=== PATIENT | female | born 1940 | race Caucasian/White ===

== ENCOUNTER 2024-03-14 21:02 | Inpatient (IN) | payer MEDICAID ==
[~2024-03-14] VITALS: Ht 165.1 cm; Wt 54.6 kg
[2024-03-14] MEDS: SODIUM CHLORIDE 0.9% 1,000 ML IV ONE ×2 (21:29→23:02)
[2024-03-14 21:33] VITALS: O2SAT 95
[2024-03-14 21:40] LABS: HEMATOCRIT. 45.5 % (36.0-48.0); HEMOGLOBIN. 14.9 g/dL (12.0-16.0); MEAN CORPUSCULAR HEMOGLOBIN 29.9 pg (28.0-32.0); MEAN CORPUSCULAR HGB CONC 32.7 g/dL (31.0-37.0); MEAN CORPUSCULAR VOLUME 91.4 fL (81.0-99.0); MEAN PLATELET VOLUME 9.8 fl (7.4-10.4); PLATELET 317 x1000/uL (130-400); RED BLOOD CELL COUNT 4.98 mill/uL (4.2-5.4); RED CELL DISTRIBUTION WIDTH 16.5 % (11.6-14.6); WHITE BLOOD COUNT 20.6 x1000/uL (4.5-11.0)
[2024-03-14 21:44] LABS: DIFFERENTIAL COMMENT 1
[2024-03-14] MEDS ORDERED: CEFEPIME 2GM IN DEXT 5% 100ML IV ONE (21:45)
[2024-03-14] MEDS: PANTOPRAZOLE SODIUM 40 MG/VIAL IV STA (21:47)
[2024-03-14] MEDS: MORPHINE SULFATE 2 MG/ML INJ (NOT FOR IM USE) IV ONE (21:49)
[2024-03-14] MEDS: ONDANSETRON HCL 4MG/2ML INJ IV STA (21:49)
[2024-03-14 21:57] LABS: D-DIMER 10.45 mg/L FEU (<0.50); INR 1.1; PROTHROMBIN TIME 12.6 sec (9.6-11.0)
[2024-03-14 21:59] LABS: CARBON DIOXIDE 21 mEq/L (21-32); CHLORIDE 103 mEq/L (98-107); POTASSIUM 5.9 mEq/L (3.5-5.1); SODIUM 140 mEq/L (136-145)
[2024-03-14 22:00] LABS: CALCIUM 10.4 mg/dL (8.7-10.4)
[2024-03-14] MEDS ORDERED: PIPERACILLIN/TAZO 3.375G/50ML 50 ML IV SCH (22:00)
[2024-03-14 22:04] LABS: CREATININE 1.6 mg/dL (0.6-1.0); GLUCOSE 381 mg/dL (70-105)
[2024-03-14 22:05] LABS: UREA NITROGEN BLOOD 63 mg/dL (9-23)
[2024-03-14 22:06] LABS: ALANINE AMINOTRANSFERASE 52 IU/L (10-49); ALBUMIN 4.2 g/dL (3.2-4.8); ASPARTATE AMINOTRANSFERASE 70 IU/L (<34)
[2024-03-14 22:07] LABS: BETA HYDROXYBUTYRATE 0.4 mMol/L (0.0-0.3); BILIRUBIN DIRECT 0.3 mg/dL (<=3.0); BILIRUBIN TOTAL 0.8 mg/dL (0.1-1.0); PHOSPHORUS 2.5 mg/dL (2.5-4.9); PROTEIN TOTAL 7.7 g/dL (6.0-8.3)
[2024-03-14 22:08] LABS: PLATELET ESTIMATE NORMAL
[2024-03-14] MEDS: VANCOMYCIN 1G PREMIX 200 ML IV SCH (22:09)
[2024-03-14 22:11] LABS: LACTIC ACID 5.7 mmol/L (0.4-2.0)
[2024-03-14 22:18] LABS: TROPONIN I HIGH SENSITIVITY 59 ng/L (3.0-34)
[2024-03-14 23:15] VITALS: O2SAT 99
[2024-03-15] VITALS (14 sets, daily range): BP systolic 109–133; BP diastolic 82–93; PULSE 100–117; RESP 13–25; TEMP 36.61404–37.39188; O2SAT 90–100
[2024-03-15] MEDS: CEFEPIME 2GM/100ML 100 ML IV SCH (00:13)
[2024-03-15] MEDS: MORPHINE SULFATE 2 MG/ML INJ (NOT FOR IM USE) IV ONE (02:37)
[2024-03-15] MEDS ORDERED: DOCUSATE SODIUM 100MG CAPSULE PO PRN (09:30)
[2024-03-15] MEDS ORDERED: ACETAMINOPHEN 650MG/20.3ML UDC GT PRN (09:30)
[2024-03-15] MEDS ORDERED: MAGNESIUM/ALUMINUM HYDROXIDE/SIMETHICONE 30ML UDC PO PRN (09:30)
[2024-03-15] MEDS ORDERED: NITROGLYCERIN 0.4MG TABLET SL SL PRN (09:30)
[2024-03-15] MEDS ORDERED: ZOLPIDEM TARTRATE 5MG TABLET PO PRN (09:30)
[2024-03-15] MEDS ORDERED: IPRATROPIUM/ALBUTEROL 0.5-3(2.5)MG/3ML NEB NEB PRN (09:30)
[2024-03-15 10:56] LABS: HEMATOCRIT 37.8 % (36.0-48.0); HEMOGLOBIN 12.4 g/dL (12.0-16.0); MEAN CORPUSCULAR HEMOGLOBIN 29.8 pg (28.0-32.0); MEAN CORPUSCULAR HGB CONC 32.7 g/dL (31.0-37.0); MEAN CORPUSCULAR VOLUME 91.2 fL (81.0-99.0); PLATELET 220 x1000/uL (130-400); RED BLOOD CELL COUNT 4.14 mill/uL (4.2-5.4); RED CELL DISTRIBUTION WIDTH 16.6 % (11.6-14.6); WHITE BLOOD COUNT 15.6 x1000/uL (4.5-11.0)
[2024-03-15] MEDS: SODIUM ZIRCONIUM CYCLOSILICATE 10GM/PACKET PO NR (10:56)
[2024-03-15 11:13] LABS: ALANINE AMINOTRANSFERASE 31 IU/L (10-49); ALBUMIN 3.5 g/dL (3.2-4.8); ASPARTATE AMINOTRANSFERASE 20 IU/L (<34); BILIRUBIN DIRECT 0.2 mg/dL (<=3.0); BILIRUBIN TOTAL 0.5 mg/dL (0.1-1.0); PROTEIN TOTAL 6.3 g/dL (6.0-8.3)
[2024-03-15] MEDS: PANTOPRAZOLE SODIUM 40 MG/VIAL IV SCH (11:32)
[2024-03-15 11:37] LABS: CALCIUM 9.8 mg/dL (8.7-10.4); CARBON DIOXIDE 19 mEq/L (21-32); CHLORIDE 111 mEq/L (98-107); SODIUM 141 mEq/L (136-145)
[2024-03-15 11:42] LABS: CREATININE 1.3 mg/dL (0.6-1.0); GLUCOSE 220 mg/dL (70-105); IRON 12 ug/dL (50-170)
[2024-03-15 11:43] LABS: LDL CHOLESTEROL 16 mg/dL (5-100); TRIGLYCERIDE 117 mg/dL (0-150); UREA NITROGEN BLOOD 68 mg/dL (9-23)
[2024-03-15 11:44] LABS: CHOLESTEROL 84 mg/dL (<200)
[2024-03-15 11:45] LABS: HDL CHOLESTEROL 39 mg/dL (>65); TOTAL IRON BINDING CAPACITY 470 ug/dl (250-425)
[2024-03-15] MEDS ORDERED: METF-414 GT (11:46)
[2024-03-15 11:47] LABS: T4 FREE 1.19 ng/dL (0.89-1.76); THYROID STIMULATING HORMONE 0.28 uIU/mL (0.55-4.78)
[2024-03-15] MEDS ORDERED: METO-385 GT (11:47)
[2024-03-15 11:59] LABS: VITAMIN B12 SERUM 570 pg/mL (211-911)
[2024-03-15 12:00] LABS: FOLIC ACID (FOLATE) SERUM 11.09 ng/mL (>5.38)
[2024-03-15 12:13] LABS: BG BASE EXCESS -7.1 mmol/L (-2.0-3.0); BG CARBOXYHEMOGLOBIN 0.5 % (0.5-1.5); BG FRACTION INSPIRED OXYGEN 80; BG METHEMOGLOBIN 0.3 % (0.5-1.5); BG OXYHEMOGLOBIN 98.2 % (94.0-98.0); BG PCO2 26.4 mmHg (32.0-45.0); BG PH 7.401 (7.350-7.450); BG PO2 128.4 mmHg (83.0-108.0); BG SAMPLE SITE RIGHT RADIAL; BG TOTAL HEMOGLOBIN 13.1 g/dL (12.0-16.0); BG VENT MODE HIGH FLOW
[2024-03-15] MEDS: DEXT 5%/0.45% NACL 1000ML 1,000 ML IV SCH (12:32)
[2024-03-15] MEDS: MEROPENEM 1G/100ML 100 ML IV SCH (12:32)
[2024-03-15] MEDS: NITROGLYCERIN OINT 1GM/INCH UDPKT TD SCH (14:17)
[2024-03-15 15:43] LABS: CLARITY URINE CLOUDY (CLEAR); COLOR URINE YELLOW (YELLOW); GLUCOSE URINE NEGATIVE (NEGATIVE); KETONES URINE NEGATIVE (NEGATIVE); LEUKOCYTE ESTERASE URINE 1+ (NEGATIVE); NITRITE URINE NEGATIVE (NEGATIVE); OCCULT BLOOD URINE NEGATIVE (NEGATIVE); PROTEIN URINE 1+ (NEGATIVE); SPECIFIC GRAVITY URINE 1.023 (1.005-1.030); UROBILINOGEN URINE 0.2 E.U./dL (0.2-1.0)
[2024-03-15 16:09] LABS: BACTERIA URINE 4+; RBC URINE 0-2 /hpf (0-2); SQUAMOUS EPITHELIAL CELL URINE 1+ /lpf (RARE/1+)
[2024-03-15 16:10] LABS: WBC URINE 15-25 /hpf (0-2)
[2024-03-15] MEDS ORDERED: DEXTROSE 50% WATER 50ML SYRINGE IV PRN (16:15)
[2024-03-15] MEDS ORDERED: INSULIN LISPRO 100 UNITS/ML SUBCUT SCH (16:15)
[2024-03-15 16:19] LABS: *AMPHETAMINES SCREEN URINE NEGATIVE (NEGATIVE)
[2024-03-15 16:20] LABS: *BARBITURATES SCREEN URINE NEGATIVE (NEGATIVE); *BENZODIAZEPINES SCREEN URINE NEGATIVE (NEGATIVE); *COCAINE SCREEN URINE NEGATIVE (NEGATIVE); CANNABINOID URINE SCREEN NEGATIVE (NEGATIVE); ECSTASY MDMA SCREEN URINE NEGATIVE (NEGATIVE); METHADONE URINE SCREEN NEGATIVE (NEGATIVE); OPIATES URINE SCREEN PRESUMPTIVE POSITIVE (NEGATIVE); PHENCYCLIDINE URINE SCREEN NEGATIVE (NEGATIVE)
[2024-03-15] MEDS: ACETAMINOPHEN 650MG/20.3ML UDC GT PRN (16:23)
[2024-03-15] MEDS: FERROUS SULFATE 300MG/5ML UDC PEG SCH (16:24)
[2024-03-15] MEDS: BLOOD SUGAR DIAGNOSTIC STRIP TEST SCH (17:47)
[2024-03-15] MEDS: INSULIN LISPRO 100 UNITS/ML SUBCUT SCH (18:10)
[2024-03-15] MEDS ORDERED: VANCOMYCIN 750MG/150ML (BAXTER) IV SCH (21:00)
[2024-03-16] VITALS (14 sets, daily range): BP systolic 99–147; BP diastolic 79–96; PULSE 80–155; RESP 14–28; TEMP 36.114–36.83628; O2SAT 90–100
[2024-03-16] MEDS ORDERED: ADENOSINE 3 MG/ML 2ML VIAL IV NR (03:15)
[2024-03-16] MEDS: METOPROLOL TARTRATE 5MG/5ML VIAL IV NR (04:25)
[2024-03-16] MEDS: SODIUM CHLORIDE 0.9% 500 ML IV NR (04:25)
[2024-03-16 06:19] LABS: CHLORIDE 111 mEq/L (98-107); POTASSIUM 3.3 mEq/L (3.5-5.1); SODIUM 144 mEq/L (136-145)
[2024-03-16 06:22] LABS: CALCIUM 9.8 mg/dL (8.7-10.4); CARBON DIOXIDE 19 mEq/L (21-32)
[2024-03-16 06:23] LABS: TROPONIN I HIGH SENSITIVITY 32 ng/L (3.0-34)
[2024-03-16 06:27] LABS: GLUCOSE 163 mg/dL (70-105); UREA NITROGEN BLOOD 67 mg/dL (9-23)
[2024-03-16 06:28] LABS: ALANINE AMINOTRANSFERASE 21 IU/L (10-49)
[2024-03-16 06:29] LABS: ALBUMIN 3.3 g/dL (3.2-4.8); ASPARTATE AMINOTRANSFERASE 14 IU/L (<34); BILIRUBIN TOTAL 0.7 mg/dL (0.1-1.0); CREATINE KINASE 34 IU/L (34-145); PHOSPHORUS 2.7 mg/dL (2.5-4.9); PROTEIN TOTAL 5.8 g/dL (6.0-8.3)
[2024-03-16 06:38] LABS: BASOPHILS % 0.2 % (0.0-2.0); EOSINOPHILS % 0.2 % (0.0-5.0); HEMATOCRIT. 36.8 % (36.0-48.0); HEMOGLOBIN. 11.8 g/dL (12.0-16.0); MEAN CORPUSCULAR HEMOGLOBIN 29.7 pg (28.0-32.0); MEAN CORPUSCULAR HGB CONC 32.1 g/dL (31.0-37.0); MEAN CORPUSCULAR VOLUME 92.6 fL (81.0-99.0); MEAN PLATELET VOLUME 10.5 fl (7.4-10.4); MONOCYTES % 5.2 % (2.0-8.0); NEUTROPHILS % 84.4 % (40.0-76.0); PLATELET 221 x1000/uL (130-400); RED BLOOD CELL COUNT 3.98 mill/uL (4.2-5.4); RED CELL DISTRIBUTION WIDTH 17.3 % (11.6-14.6); WHITE BLOOD COUNT 12.2 x1000/uL (4.5-11.0)
[2024-03-16] MEDS: CLONIDINE 0.1MG TABLET PO PRN (08:11)
[2024-03-16] MEDS: VANCOMYCIN 1GM/200ML PMX (BAXTER) IV SCH (12:30)
[2024-03-16] MEDS: POTASSIUM CHLORIDE 20MEQ/PACKET GT NR (12:30)
[2024-03-16] MEDS ORDERED: IOHEXOL-300 100 ML BOTTLE ONE (12:43)
[2024-03-16] MEDS ORDERED: VANCOMYCIN 1.25GM PMX (XELLIA) 250 ML IV SCH (21:00)
[2024-03-17] VITALS (10 sets, daily range): BP systolic 148–172; BP diastolic 87–158; PULSE 87–92; RESP 15–21; TEMP 36.3918–37.00296; O2SAT 93–100
[2024-03-17 06:30] LABS: CHLORIDE 112 mEq/L (98-107); POTASSIUM 3.3 mEq/L (3.5-5.1); SODIUM 143 mEq/L (136-145)
[2024-03-17 06:31] LABS: CARBON DIOXIDE 22 mEq/L (21-32)
[2024-03-17 06:32] LABS: CALCIUM 9.3 mg/dL (8.7-10.4)
[2024-03-17 06:36] LABS: CREATININE 0.7 mg/dL (0.6-1.0)
[2024-03-17 06:37] LABS: GLUCOSE 203 mg/dL (70-105); UREA NITROGEN BLOOD 33 mg/dL (9-23)
[2024-03-17 07:50] LABS: HEMATOCRIT 36.1 % (36.0-48.0); HEMOGLOBIN 11.4 g/dL (12.0-16.0); MEAN CORPUSCULAR HEMOGLOBIN 29.5 pg (28.0-32.0); MEAN CORPUSCULAR HGB CONC 31.7 g/dL (31.0-37.0); MEAN CORPUSCULAR VOLUME 93.1 fL (81.0-99.0); PLATELET 185 x1000/uL (130-400); RED BLOOD CELL COUNT 3.87 mill/uL (4.2-5.4); RED CELL DISTRIBUTION WIDTH 16.9 % (11.6-14.6); WHITE BLOOD COUNT 7.4 x1000/uL (4.5-11.0)
[2024-03-17] MEDS: KCL 20MEQ/100ML PREMIX 100 ML IV SCH (08:44)
[2024-03-17 10:42] LABS: ALANINE AMINOTRANSFERASE 15 IU/L (10-49); ALBUMIN 3.1 g/dL (3.2-4.8); ASPARTATE AMINOTRANSFERASE 14 IU/L (<34); BILIRUBIN DIRECT 0.3 mg/dL (<=3.0); BILIRUBIN TOTAL 0.6 mg/dL (0.1-1.0); PROTEIN TOTAL 5.7 g/dL (6.0-8.3)
[2024-03-17] MEDS: KCL 20MEQ/100ML PREMIX 100 ML IV NR (13:41)
[2024-03-18] VITALS: BP 194/98; PULSE 96; RESP 24; TEMP 36.89184; O2SAT 95
[2024-03-18 04:00] VITALS: BP 164/101; PULSE 104; RESP 26; TEMP 36.50292; O2SAT 91
[2024-03-18 08:00] VITALS: BP 159/98; PULSE 103; RESP 26; TEMP 36.28068; O2SAT 91
[2024-03-18] MEDS: GUAIFENESIN 200MG/10ML SUGAR FREE UDC PO PRN (08:42)
[2024-03-18] MEDS: FAMOTIDINE 20MG/2ML VIAL IV SCH (08:43)
[2024-03-18 10:00] VITALS: BP 172/106; PULSE 90; RESP 18; O2SAT 94
[2024-03-18 12:00] VITALS: BP 170/105; PULSE 96; RESP 23; TEMP 36.28068; O2SAT 93
[2024-03-18] MEDS: ONDANSETRON HCL 4MG/2ML INJ IV PRN (12:50)
[2024-03-18 15:58] VITALS: BP 142/115; PULSE 96; TEMP 97.3; O2SAT 90
== END 2024-03-18 17:27 | disposition hospice, home (50) | DRG 720 ==
LOC: ER 21:02 → 5EST 03-15 01:55
PROVIDERS: ADMIT Internal Medicine; ATTEND Internal Medicine
PROC: 5A0935A Assistance with Respiratory Ventilation, Less than 24 Consecutive Hours, High Flow/Velocity Cannula (ICD-10-PCS; principal; 2024-03-14)
PROC: 5A0935A Assistance with Respiratory Ventilation, Less than 24 Consecutive Hours, High Flow/Velocity Cannula (ICD-10-PCS; 2024-03-16)
DX: A41.9 Sepsis, unspecified organism (principal); J96.00 Acute respiratory failure, unspecified whether with hypoxia or hypercapnia; I21.4 Non-ST elevation (NSTEMI) myocardial infarction; G92.8 Other toxic encephalopathy; E87.20 Acidosis, unspecified; N17.9 Acute kidney failure, unspecified; D50.9 Iron deficiency anemia, unspecified; E11.65 Type 2 diabetes mellitus with hyperglycemia; Z66 Do not resuscitate; E87.5 Hyperkalemia; F03.90 Unspecified dementia, unspecified severity, without behavioral disturbance, psychotic disturbance, mood disturbance, and anxiety; I10 Essential (primary) hypertension; Z51.5 Encounter for palliative care; I25.10 Atherosclerotic heart disease of native coronary artery without angina pectoris; K52.9 Noninfective gastroenteritis and colitis, unspecified; R13.10 Dysphagia, unspecified; R79.1 Abnormal coagulation profile; Z60.3 Acculturation difficulty; R79.89 Other specified abnormal findings of blood chemistry; R74.01 Elevation of levels of liver transaminase levels; Z93.1 Gastrostomy status; Z88.0 Allergy status to penicillin; Z88.8 Allergy status to other drugs, medicaments and biological substances; Z79.899 Other long term (current) drug therapy
CPT/HCPCS: 36415; 36600; 71045; 74018; 74177; 76770; 80048; 80053; 80061; 80076; 80202; 80305; 81003; 82010; 82375; 82550; 82553; 82607; 82728; 82746; 82803; 82805; 82962; 83036; 83540; 83550; 83605; 83735; 83880; 84100; 84145; 84439; 84443; 84484; 85025; 85027; 85379; 86850; 86900; 93005; 93970; 99291; J0692; J1815; J2185; J2270; J2405; J2470; J2543; J3370; J3480; J3490; J7030; Q9967